=== PATIENT | male | born 1980 | race American Indian/Alaskan Native ===

== ENCOUNTER 2016-08-14 08:45 | Emergency (ER) | payer SELFPAY ==
--- NOTE | 2016-08-14 09:41 | Emergency Department Report ---
Chief Complaint: Head Injury Stated Complaint: HEAD INJURY FOLLOW UP Time Seen by Provider: 08/14/16 09:32 - HPI History of Present Illness: 35-year-old male presents today complaining of on and off lightheadedness and headache 5 days. Patient states that he had a work-related head injury 5 days ago when a fire and flash steel work equipment fell on his head. Positive for laceration and abrasion to the frontal forehead. Denies loss of consciousness. Tetanus status unknown. Also complaining of minimal neck stiffness. Denies chest pain, shortness of breath, abdominal pain. - ROS Review of Systems: Per HPI - Exam Vital Signs: Vital Signs 08/14/16 08:54 Temperature 98.8 F Pulse Rate 81 Respiratory 18 Rate Blood Pressure 171/129 O2 Sat by Pulse 100 Oximetry Physical Exam: General: 35-year-old male in no acute distress. Well-developed, well-nourished. CV: Regular rate and rhythm. Lungs: Clear to auscultation bilaterally. Neuro: Alert and oriented 3, normal gait, fluid speech, EOMs intact, normal facial sensation, strength exam 5/5 upper and lower extremities, GCS equals 15, finger to nose normal, negative Romberg test. MSE screening note: Focused history and physical exam performed. Due to findings the following was ordered: ED Disposition for MSE Condition: Stable
[2016-08-14] MEDS ORDERED: CATAPRES PO ONE (09:42)
--- NOTE | 2016-08-14 10:05 | Cat Scan Report ---
CT HEAD WITHOUT CONTRAST: HISTORY: Head injury. Serial contiguous axial images were obtained through the cranium. Intravenous contrast material was not administered. The ventricles are normal in size and appearance. There is no mass effect or midline shift. No areas of abnormally increased or decreased attenuation are seen. No mass lesion is seen. The mastoid air cells and visualized portions of the sinuses are normal. IMPRESSION: Cranial CT scan within normal limits.
[2016-08-14 10:17] LABS: Basophils % (Auto) 0.6 % (0.0-1.8); Hemoglobin 15.4 gm/dl (11.8-15.2); Mean Corpuscular HGB Conc 33 % (32-34); Mean Corpuscular Hemoglobin 32 pg (28-32); Mean Corpuscular Volume 94 fl (84-94); Platelet Count 280 K/mm3 (140-440); Red Blood Count 4.89 M/mm3 (3.65-5.03); Red Cell Distribution Width 13.3 % (13.2-15.2); White Blood Count 9.8 K/mm3 (4.5-11.0)
[2016-08-14 10:34] LABS: Anion Gap 14 mmol/L; Blood Urea Nitrogen 9 mg/dL (9-20); Calcium 9.3 mg/dL (8.4-10.2); Carbon Dioxide 28 mmol/L (22-30); Chloride 102.8 mmol/L (98-107); Glucose 105 mg/dL (75-100); Potassium 4.5 mmol/L (3.6-5.0); Sodium 140 mmol/L (137-145)
[2016-08-14] MEDS ORDERED: TORADOL IM ONE (21:48)
[2016-08-14] MEDS ORDERED: TENIVAC IM ONE (21:48)
--- NOTE | 2016-08-14 21:51 | Emergency Department Report ---
HPI - General Chief Complaint: Head Injury Time Seen by Provider: 08/14/16 09:32 - HPI HPI: This is a 35-year-old Afro-[place] male who drove himself in to be seen for a checkup. Patient said that he had a piece of construction equipment fall down on his head last , 5 days ago. He did not have any loss of consciousness. It caused a abrasion to the right forehead and some bruising. Since that time he has been having some vertigo-like symptoms that he describes as dizziness/lightheadedness. He also complains of some intermittent light headaches. However he is currently symptomatically. He says he just came in to check on his "well-being." He also complains of some stiffness to the top of the shoulders and the sides of the neck. He denies any numbness, paresthesias, problems with bowel or bladder, problems with ambulation or movement. He does not have a primary care doctor. He is a tobacco smoker. He denies any illicit drug use. He has not taken anything for symptoms prior to presentation. No recent travel or sick contacts at home. He presents with some elevated blood pressure but does not have a history of hypertension. Unknown last tetanus vaccination. ED Past Medical Hx - Medications Home Medications: Home Medications Medication Instructions Recorded Confirmed Last Taken Type Meclizine [Antivert] 12.5 mg PO BID PRN #16 tablet 08/14/16 Unknown Rx amLODIPine [Norvasc] 5 mg PO DAILY #30 tab 08/14/16 Unknown Rx ED Review of Systems ROS: Stated complaint: HEAD INJURY FOLLOW UP Other details as noted in HPI Comment: All other systems reviewed and negative Constitutional: denies: chills, fever Eyes: denies: eye pain, eye discharge, vision change ENT: denies: ear pain, throat pain Respiratory: denies: cough, shortness of breath, wheezing Cardiovascular: denies: chest pain, palpitations Endocrine: no symptoms reported Gastrointestinal: denies: abdominal pain, nausea, diarrhea Genitourinary: denies: urgency, dysuria Musculoskeletal: denies: back pain, joint swelling Skin: denies: rash, pruritus Neurological: headache, vertigo, other (dizziness). denies: weakness, numbness , paresthesias, confusion Physical Exam - Physical Exam Vital Signs: Vital Signs 0108/14/16 08/14/16 08:54 11:21 12:40 Temperature 98.8 F Pulse Rate 81 73 79 Respiratory 18 18 Rate Blood Pressure 171/129 171/114 Blood Pressure 162/113 [Right] O2 Sat by Pulse 100 100 Oximetry 08/14/16 20:34 Temperature 98.5 F Pulse Rate 96 H Respiratory 18 Rate Blood Pressure 158/112 Blood Pressure [Right] O2 Sat by Pulse 98 Oximetry Physical Exam: GENERAL: The patient is well-developed well-nourished. HEENT: Normocephalic. Extraocular motions are intact. Patient has moist mucous membranes. Pupils equal reactive to light bilaterally. No nystagmus. Tongue is midline. NECK: Supple. Trachea is midline. No midline tenderness to palpation or deformity. There is some reproducible tenderness to the lateral neck muscles with some associated taut musculature. CHEST/LUNGS: Clear to auscultation. There is no respiratory distress noted. HEART/CARDIOVASCULAR: Regular. There is no tachycardia. There is no gallop rub or murmur. ABDOMEN: Abdomen is soft, nontender. Patient has normal bowel sounds. There is no abdominal distention. SKIN: There is a healing circular abrasion and eschar to the right forehead. NEURO: The patient is awake, alert, and oriented. The patient is cooperative. The patient has no focal neurologic deficits. The patient has normal speech. MUSCULOSKELETAL: There is no tenderness or deformity. There is no limitation range of motion. There is no evidence of acute injury. Muscle strength 5 out of 5 upper and lower extremity bilaterally. ED Course Vital Signs 08/14/16 08/14/16 08/14/16 08:54 11:21 12:40 Temperature 98.8 F Pulse Rate 81 73 79 Respiratory 18 18 Rate Blood Pressure 171/129 171/114 Blood Pressure 162/113 [Right] O2 Sat by Pulse 100 100 Oximetry 08/14/16 20:34 Temperature 98.5 F Pulse Rate 96 H Respiratory 18 Rate Blood Pressure 158/112 Blood Pressure [Right] O2 Sat by Pulse 98 Oximetry ED Medical Decision Making - Lab Data Result diagrams: 08/14/16 10:05 08/14/16 10:05 - Radiology Data Radiology results: report reviewed CT of the head does not show any acute process including no hemorrhage, mass, shift, diffuse edema or skull fracture. - Medical Decision Making 35-year-old male presents to the emergency department 5 days after head trauma with complaint of some dizziness that he describes more like vertigo. Patient currently is symptomatically. CT of the brain does not show any bleed, shift, mass or any acute process. Patient's CBC and metabolic panel are unremarkable. He does not have any focal, motor or sensory deficits. Cranial nerves are intact. He was given a tetanus shot. He was also given a shot of Toradol for discomfort. Earlier, through triage, he was given some clonidine due to his elevated blood pressure. It is come down to more reasonable level but he still has hypertension, especially diastolic. Patient appears safe for discharge home. He will be given referrals for primary care. He will be started on some Norvasc for blood pressure. He will also be given some Antivert to use when he starts having the vertigo like symptoms again. He will return to the ER with any worsening of symptoms or any acute distress. - Differential Diagnosis essential hypertension, skull fracture, vertigo, brain bleed, muscle spasm Critical Care Time: No Critical care attestation.: If time is entered above; I have spent that time in minutes in the direct care of this critically ill patient, excluding procedure time. ED Disposition Clinical Impression: Paroxysmal vertigo Minor head injury without loss of consciousness Qualifiers: Encounter type: initial encounter Qualified Code(s): S09.90XA - Unspecified injury of head, initial encounter Forehead abrasion Qualifiers: Encounter type: initial encounter Qualified Code(s): S00.81XA - Abrasion of other part of head, initial encounter Hypertension Qualifiers: Hypertension type: essential hypertension Qualified Code(s): I10 - Essential ( primary) hypertension Disposition: DISCHARGED TO HOME OR SELFCARE Is pt being admited?: No Condition: Good Instructions: Hypertension (ED), Vertigo (ED), Dizziness (ED), Minor Head Injury (ED) Additional Instructions: Please follow up with one of the primary care clinics that you have been given a referral to. I started you on a medication called Norvasc for your elevated blood pressure. Keep a blood pressure log. Try to stay with him foods that are high in salt and caffeinated products. I have also prescribed you a medication called Antivert which is to treat the vertigo like symptoms, when the room is spinning. Sometimes this medication can be sedating. Be cautious when taking it prior to driving, working or being responsible for children and it should not be mixed with alcohol. Return to the emergency department with any worsening of your symptoms or any acute distress. Prescriptions: Meclizine [Antivert] 12.5 mg PO BID PRN #16 tablet PRN Reason: Vertigo amLODIPine [Norvasc] 5 mg PO DAILY #30 tab Referrals: PRIMARY CARE, [Primary Care Provider] - 3-5 Days [facility] [Outside] - 3-5 Days [facility] [Outside] - 3-5 Days [facility] [Outside] - 3-5 Days Time of Disposition: 22:38
[2016-08-14 21:53] VITALS: BP 154/110
== END 2016-08-14 23:05 | disposition home or self-care (01) ==
LOC: ED 08:45
DX: S00.81XA Abrasion of other part of head, initial encounter (principal); I10 Essential (primary) hypertension; H81.10 Benign paroxysmal vertigo, unspecified ear; W20.8XXA Other cause of strike by thrown, projected or falling object, initial encounter; Y93.9 Activity, unspecified; Y92.9 Unspecified place or not applicable; Y99.9 Unspecified external cause status
CPT/HCPCS: 36415; 70450; 80048; 85025; 90471; 96372; 99284; J1885; 90714